=== PATIENT | female | born 1990 | race Caucasian/White ===

== ENCOUNTER 2018-08-20 13:19 | Emergency (ER) | payer OTHER ==
[2018-08-20 13:33] VITALS: BP 148/92; PULSE 86; TEMP 98.2; BMI 44.6
[2018-08-20] MEDS ORDERED: IBUPROFEN 600 MG TABLET (FP) PO ONE (14:00)
[2018-08-20 14:13] LABS: BASO % 1.3 % (0-2.0); EOS % 3.1 % (0-4.5); HEMATOCRIT 40.2 % (32.4-45.2); HEMOGLOBIN 14.3 GM/dL (10.7-15.3); LYMPH % 36.8 % (8-40); MCHC 35.7 g/dl (32.0-36.0); MEAN CELL VOLUME 92.4 fl (80-96); MEAN PLT VOLUME 8.9 fl (7.5-11.1); MONO % 7.1 % (3.8-10.2); NEUT % 51.7 % (42.8-82.8); PLATELET COUNT 324 K/MM3 (134-434); RBC 4.35 M/mm3 (3.60-5.2); WHITE BLOOD COUNT 8.6 K/mm3 (4.0-10.0)
[2018-08-20 14:25] LABS: HCG,QUALITATIVE URINE Positive
--- NOTE | 2018-08-20 14:26 | PDOC ---
History of Present Illness - General Chief Complaint: Vaginal Bleeding Stated Complaint: ABD PAIN Time Seen by Provider: 08/20/18 13:44 History Source: Patient Exam Limitations: No Limitations - History of Present Illness Initial Comments: 08/20/18 14:21 Patient is a 28F with history of PCOS here today complaining of vaginal bleeding for the past 16 days. She states that she has episodes of vaginal bleeding 3 days of the week with clots going through five pads per day. Denies history of STIs, states that she is monogamous with her and is currently trying to get . OBGYN is Dr Herrera. Denies fevers, chills, dysuria, frequency, nausea, vomiting. Denies chest pain and shortness of breath. Denies history of fibroids. Past History - Past Medical History Allergies/Adverse Reactions: Allergies Allergy/AdvReac Type Severity Reaction Status Date / Time No Known Allergies Allergy Verified 08/20/18 13:32 COPD: No Other medical history: PCOS on Metformin - Surgical History Cholecystectomy: No - Immunization History Immunization Up to Date: No - Suicide/Smoking/Psychosocial Hx Smoking History: Never smoked Have you smoked in the past 12 months: No Information on smoking cessation initiated: No Hx Alcohol Use: No Drug/Substance Use Hx: No Review of Systems - Review of Systems Comments:: 08/20/18 14:26 GENERAL/CONSTITUTIONAL: No fever or chills. No weakness. HEAD, EYES, EARS, NOSE AND THROAT: No change in vision. No ear pain or discharge. No sore throat. CARDIOVASCULAR: No chest pain or shortness of breath RESPIRATORY: No cough, wheezing, or hemoptysis. GASTROINTESTINAL: No nausea, vomiting, diarrhea or constipation. GENITOURINARY: No dysuria, frequency, or change in urination. MUSCULOSKELETAL: No joint or muscle swelling or pain. No neck or back pain. SKIN: No rash NEUROLOGIC: No headache, vertigo, loss of consciousness, or change in strength/ sensation. ENDOCRINE: No increased thirst. No abnormal weight change HEMATOLOGIC/LYMPHATIC: No anemia, easy bleeding, or history of blood clots. ALLERGIC/IMMUNOLOGIC: No hives or skin allergy. *Physical Exam - Vital Signs Last Vital Signs Temp Pulse Resp BP Pulse Ox 98.2 F 86 18 148/92 100 08/20/18 13:30 08/20/18 13:30 08/20/18 13:30 08/20/18 13:30 08/20/18 13:30 - Physical Exam Comments: 08/20/18 14:26 GENERAL: Awake, alert, and fully oriented, in no acute distress PELVIC: Normal external genitalia, no cmt, small amount of blood in vault, closed os, no adnexal tenderness/masses. HEAD: No signs of trauma, normocephalic, atraumatic EYES: PERRLA, EOMI, sclera anicteric, conjunctiva clear ENT: Auricles normal inspection, hearing grossly normal, nares patent, oropharynx clear without exudates. Moist mucosa NECK: Normal ROM, supple, no lymphadenopathy, JVD, or masses LUNGS: No distress, speaks full sentences, clear to auscultation bilaterally HEART: Regular rate and rhythm, normal S1 and S2, no murmurs, rubs or gallops, peripheral pulses normal and equal bilaterally. ABDOMEN: Soft, nontender, normoactive bowel sounds. No guarding, no rebound. No masses EXTREMITIES: Normal inspection, Normal range of motion, no edema. No clubbing or cyanosis. NEUROLOGICAL: Cranial nerves II through XII grossly intact. Normal speech, normal gait, no focal sensorimotor deficits SKIN: Warm, Dry, normal turgor, no rashes or lesions noted. Moderate Sedation - Procedure Monitoring Vital Signs: Procedure Monitoring Vital Signs Temperature 98.2 F 08/20/18 13:30 Pulse Rate 86 08/20/18 13:30 Respiratory Rate 18 08/20/18 13:30 Blood Pressure 148/92 08/20/18 13:30 O2 Sat by Pulse Oximetry (%) 100 08/20/18 13:30 ED Treatment Course - LABORATORY CBC & Chemistry Diagram: 08/20/18 14:07 08/20/18 14:07 - RADIOLOGY Radiology Studies Ordered: Category Date Time Status TRANSVAGINAL ULTRASOUND US [US] Stat Ultrasound 08/20/18 13:55 Ordered Medical Decision Making - Medical Decision Making 08/20/18 14:27 Patient is a 28F with history of PCOS here today with vaginal bleeding. Vitals normal and stable. Will evaluate for fibroids, uti, . UA, CBC, CMP, TVUS ordered. Likely discharge. 08/20/18 15:24 Upreg positive. Motrin order canceled. Type and screen, beta quant added. CBC CMP reassuring. 08/20/18 17:43 TVUS shows no abnormal mass, normal uterus. Pending type and screen. Blood type B+ Discharged home with return precautions, instructed to follow up with itzel Herrera for . *DC/Admit/Observation/Transfer Diagnosis at time of Disposition: Threatened - Discharge Dispostion Disposition: HOME Condition at time of disposition: Good Decision to Admit order: No - Referrals - Patient Instructions Printed Discharge Instructions: DI for Threatened Additional Instructions: Please follow up with Dr Herrera in the next two days. If you are unable to get follow up, return to the ED in two days for a second blood test. Please return immediately if you have fever, chills, and increasing pain. - Post Discharge Activity
[2018-08-20 14:32] LABS: URINE APPEARANCE SLCLOUDY; URINE BILIRUBIN NEGATIVE (<2.0 mg/dL); URINE COLOR YELLOW; URINE GLUCOSE (UA) NEGATIVE (NEGATIVE); URINE KETONE NEGATIVE (NEGATIVE); URINE LEUK ESTERASE NEGATIVE (NEGATIVE); URINE NITRITE NEGATIVE (NEGATIVE); URINE PROTEIN 2+ (NEGATIVE)
--- NOTE | 2018-08-20 14:35 | PDOC ---
Attending Attestation - Resident Resident Name: Jose Christensen - ED Attending Attestation I have performed the following: I have examined & evaluated the patient, The case was reviewed & discussed with the resident, I agree w/resident's findings & plan - HPI HPI: 08/20/18 14:32 28-year-old female with history of PCOS presents now with persistent vaginal bleeding for 16 days. Bleeding began with her scheduled menses, has been nonstop since then. Waxing and waning in heaviness, associated with some cramping but no persistent abdominal pain or discharge. No fevers or chills. No history of dysfunctional bleeding, has had documented ovarian cysts by her OSTOMY NURSE in the past. - Physicial Exam PE: 08/20/18 14:33 Vital signs stable, well-appearing No jaundice or pallor Heart is regular, lungs are clear Abdomen is soft and nondistended, no tenderness or guarding Pelvic per resident - Medical Decision Making 08/20/18 14:34 28-year-old female with history of his COS presents with prolonged vaginal bleeding for 16 days, hemodynamically stable without evidence of symptomatic anemia. Rule out Check CBC Pelvic ultrasound given no reported history Reassess, reassure 08/20/18 15:20 hgb normal at 14, but hcg positive on UA. will check beta quant, t+s, proceed with TVUS for vag bleed in eval
[2018-08-20 14:36] LABS: EPI CELLS FEW /HPF (FEW)
[2018-08-20 14:49] LABS: ALBUMIN 4.1 g/dl (3.4-5.0); ALK PHOS 106 U/L (45-117); ANION GAP 6 MMOL/L (8-16); BILIRUBIN,TOTAL 0.4 mg/dL (0.2-1); BLOOD UREA NITROGEN 12 mg/dL (7-18); CALCIUM 8.9 mg/dL (8.5-10.1); CHLORIDE 104 mmol/L (98-107); CO2 26 mmol/L (21-32); CREATININE 0.9 mg/dL (0.55-1.3); GLUCOSE,RANDOM 96 mg/dL (74-106); SGOT/AST 33 U/L (15-37); SGPT/ALT 96 U/L (13-61); SODIUM 137 mmol/L (136-145); TOT PROT 8.3 g/dl (6.4-8.2)
== END 2018-08-20 17:57 | disposition home or self-care (01) ==
LOC: JER 13:19
DX: O26.891 Other specified pregnancy related conditions, first trimester (principal); O20.0 Threatened abortion; O99.281 Endocrine, nutritional and metabolic diseases complicating pregnancy, first trimester; E28.2 Polycystic ovarian syndrome; Z3A.01 Less than 8 weeks gestation of pregnancy
CPT/HCPCS: 36415; 76817-TC; 80053; 81003; 81015; 84702; 84703; 85025; 86850; 86900; 86901; 99281-25

== ENCOUNTER 2024-11-19 06:14 | Day surgery (SDC) | payer OTHER ==
[2024-11-19] MEDS ORDERED: ACETAMINOPHEN INJECTION 100 ML ONE (06:48)
[2024-11-19] MEDS: ACETAMINOPHEN 1000 MG/100 ML BAG IVPB ONE (06:56)
[2024-11-19 07:00] LABS: ABSOLUTE IMMATURE GRANULOCYTES 0.06 x10^3/uL (0.0-0.031); BASOPHILS # 0.06 x10^3/uL (0.01-0.08); EOSINOPHIL % 2.6 % (0.7-5.8); EOSINOPHILS # 0.24 x10^3/uL (0.04-0.36); HEMATOCRIT 42.6 % (34.1-44.9); MCHC 35.2 g/dl (32.2-35.5); MEAN PLT VOLUME 10.7 fl (9.4-12.3); MONOCYTE # 0.55 x10^3/uL (0.24-0.86); MONOCYTE % 5.9 % (4.7-12.5); PLATELET COUNT 307 x10^3/uL (182-369); RDW 13.4 % (12.1-16.8)
[2024-11-19 08:34] LABS: CHLORIDE 102 mmol/L (98-107); POTASSIUM 4.3 mmol/L (3.5-5.1); SODIUM 136 mmol/L (136-145)
[2024-11-19 08:39] LABS: ALBUMIN 3.8 g/dl (3.4-5.0); ANION GAP 8 mmol/L (4-13); CO2 26 mmol/L (21-32); GLUCOSE,RANDOM 149 mg/dL (74-106); MAGNESIUM 2.2 mg/dL (1.8-2.4)
[2024-11-19 08:41] LABS: CREATININE 0.8 mg/dL (0.55-1.3)
[2024-11-19 08:43] LABS: BILIRUBIN,TOTAL 0.7 mg/dL (0.2-1)
[2024-11-19 08:49] LABS: ALK PHOS 107 U/L (45-117); BLOOD UREA NITROGEN 18.2 mg/dL (7-18); TOT PROT 8.1 g/dl (6.4-8.2)
[2024-11-19 10:16] LABS: URINE APPEARANCE CLEAR; URINE BILIRUBIN NEGATIVE (NEGATIVE); URINE COLOR YELLOW; URINE GLUCOSE (UA) NEGATIVE (NEGATIVE); URINE KETONE NEGATIVE (NEGATIVE); URINE LEUK ESTERASE NEGATIVE (NEGATIVE); URINE NITRITE NEGATIVE (NEGATIVE); URINE PROTEIN NEGATIVE (NEGATIVE)
[2024-11-19 10:18] LABS: HCG,QUALITATIVE URINE Negative
[2024-11-19] MEDS ORDERED: ACETAMINOPHEN 1000 MG/100 ML BAG IVPB PRN (11:35)
[2024-11-19] MEDS ORDERED: KETOROLAC TROMETHAMINE 15 MG/ML VIAL IVPUSH PRN (11:36)
[2024-11-19] MEDS ORDERED: PIPERACILLIN/TAZOB 3.375 GM 3.375 GM in DEXTROSE 5%-WATER - 50 ML IVPB SCH ×2 (11:45→18:00)
[2024-11-19] MEDS ORDERED: LACTATED RINGERS SOLUTION 1,000 ML/1,000 ML INFUS.BAG IV SCH (11:45)
[2024-11-19 12:00] LABS: INR 1.11 (0.83-1.09); PROTHROMBIN TIME (PATIENT) 12.1 SEC (9.7-13.0)
[2024-11-19] MEDS ORDERED: PIPERACILLIN/TAZOB 3.375 GM 3.375 GM/50 ML BAG IVPB ONE (12:02)
[2024-11-19] MEDS: PIPERACILLIN/TAZOB 3.375 GM 3.375 GM/50 ML BAG IVPB SCH ×2 (12:10→18:32)
[2024-11-19] MEDS ORDERED: BUPIVACAINE HCL/PF 0.25% (2.5MG/ML) 10 ML VIAL ONE (12:37)
[2024-11-19 12:38] LABS: CHOLESTEROL 192 mg/dL (50-200)
[2024-11-19] MEDS ORDERED: cefOXitin SODIUM 2 GM VIAL (RESTRICTED TO ID) IVPB ONE (12:38)
[2024-11-19 12:39] LABS: LDL CHOLESTEROL (ONLY SJRH) 96 mg/dL (5-100)
[2024-11-19] MEDS ORDERED: MIDAZOLAM HCL 2 MG/2 ML SINGLE DOSE VIAL ONE (13:39)
[2024-11-19] MEDS ORDERED: PROPOFOL 40 ML ONE (13:39)
[2024-11-19] MEDS ORDERED: ROCURONIUM BROMIDE 50 MG/5 ML SYRINGE ONE (13:43)
[2024-11-19] MEDS ORDERED: SUCCINYLCHOLINE CHLORIDE 200 MG/10 ML SYRINGE ONE (13:44)
[2024-11-19 13:59] LABS: HDL CHOLESTEROL 39 mg/dL (40-60)
[2024-11-19] MEDS: cefOXitin SODIUM 2 GM VIAL (RESTRICTED TO ID) IVPB ONE (14:21)
[2024-11-19] MEDS: BUPIVACAINE HCL/PF 0.25% (2.5MG/ML) 10 ML VIAL IJ ONE (14:28)
[2024-11-19] MEDS ORDERED: CEFOXITIN SODIUM 2 GM IVPB ONE (14:30)
[2024-11-19] MEDS ORDERED: SUGAMMADEX SODIUM 200 MG/2 ML VIAL ONE (15:21)
[2024-11-19] MEDS ORDERED: PROPOFOL 20 ML ONE (15:34)
[2024-11-19] MEDS ORDERED: oxyCODONE HCL 5 MG TABLET PO PRN (16:11)
[2024-11-19] MEDS ORDERED: DOCUSATE SODIUM 100 MG CAPSULE (FP) PO PRN (16:11)
[2024-11-19] MEDS ORDERED: KETOROLAC TROMETHAMINE 30 MG/1 ML VIAL IVPUSH PRN (16:11)
[2024-11-19] MEDS: ACETAMINOPHEN 1000 MG/100 ML BAG IVPB SCH (16:16)
[2024-11-19] MEDS: LACTATED RINGERS SOLUTION 1,000 ML/1,000 ML INFUS.BAG IV SCH (16:47)
[2024-11-19] MEDS: PIPERACILLIN/TAZOB 3.375 GM 3.375 GM in DEXTROSE 5%-WATER - 50 ML IVPB ONE (18:32)
[2024-11-19 18:56] VITALS: BMI 48.6
[2024-11-20] MEDS: PIPERACILLIN/TAZOB 3.375 GM 3.375 GM in DEXTROSE 5%-WATER - 50 ML IVPB SCH (02:47)
[2024-11-20 04:03] VITALS: RESP 18
[2024-11-20] MEDS ORDERED: EZETIMIBE 10 MG TABLET (FP) PO SCH (10:00)
[2024-11-20] MEDS: EZETIMIBE 10 MG TABLET (FP) PO SCH (10:48)
[2024-11-20 12:15] LABS: ABSOLUTE IMMATURE GRANULOCYTES 0.04 x10^3/uL (0.0-0.031); BASOPHILS # 0.03 x10^3/uL (0.01-0.08); HEMATOCRIT 38.7 % (34.1-44.9); HEMOGLOBIN 12.7 g/dL (11.2-15.7); MCHC 32.8 g/dl (32.2-35.5); MEAN CELL VOLUME 95.3 fl (79.4-94.8); MEAN PLT VOLUME 10.3 fl (9.4-12.3); MONOCYTE % 5.9 % (4.7-12.5); PLATELET COUNT 317 x10^3/uL (182-369); RDW 13.9 % (12.1-16.8)
[2024-11-20 13:18] LABS: POTASSIUM 4.5 mmol/L (3.5-5.1)
[2024-11-20 13:21] LABS: ALBUMIN 3.6 g/dl (3.4-5.0); BLOOD UREA NITROGEN 15.4 mg/dL (7-18); MAGNESIUM 2.3 mg/dL (1.8-2.4)
[2024-11-20 13:24] LABS: CREATININE 0.9 mg/dL (0.55-1.3)
[2024-11-20 13:25] LABS: BILIRUBIN,TOTAL 0.6 mg/dL (0.2-1); TOT PROT 7.4 g/dl (6.4-8.2)
[2024-11-20 13:27] LABS: CALCIUM 9.3 mg/dL (8.5-10.1)
[2024-11-20 14:18] VITALS: BP 112/71; PULSE 71; TEMP 97.5
[2024-11-20] MEDS ORDERED: PIPERACILLIN/TAZOB 3.375 GM 3.375 GM in DEXTROSE 5%-WATER - 50 ML IVPB SCH (18:00)
== END 2024-11-20 17:36 | disposition home or self-care (01) ==
LOC: JER 06:14 → UNDOADMIN 10:40 → JERBED 10:40 → SUATTDRO 10:40 → JASUSAT 10:40 → J6S 17:57 → JASUSAT 11-20 15:59
PROC: 0FT44ZZ Resection of Gallbladder, Percutaneous Endoscopic Approach (ICD-10-PCS; principal; 2024-11-19 14:00)
DX: K81.0 Acute cholecystitis (principal)
CPT/HCPCS: 36415; 76705-TC; 80053; 80061; 81003; 83605; 83690; 83735; 84478; 84703; 85025; 85610; 86850; 86900; 86901; 87086; 88304-TC; 94010; 94760; 99285-25

== ENCOUNTER 2024-11-28 19:46 | Emergency (ER) | payer OTHER ==
[2024-11-28 20:00] VITALS: BP 144/80; PULSE 100; RESP 18; TEMP 99.3; BMI 46.0
[2024-11-28] MEDS ORDERED: CEPHALEXIN MONOHYDRATE 500 MG CAPSULE (UD) ONE (20:43)
[2024-11-28] MEDS: CEPHALEXIN MONOHYDRATE 500 MG CAPSULE (UD) PO ONE (20:56)
== END 2024-11-28 21:00 | disposition home or self-care (01) ==
LOC: JER 19:46
DX: L03.311 Cellulitis of abdominal wall (principal); T81.41XA Infection following a procedure, superficial incisional surgical site, initial encounter; R10.11 Right upper quadrant pain; G89.18 Other acute postprocedural pain
CPT/HCPCS: 99283-25